=== PATIENT | female | born 1965 | race Caucasian/White ===

== ENCOUNTER 2016-09-15 09:45 | Outpatient (RCR) | payer BC, MEDICARE | END 2016-10-14 08:41 | disposition home or self-care (01) | LOC: WSPT 09:45 | DX: Q79.6 Ehlers-Danlos syndromes (principal) | CPT/HCPCS: G8978-GP; G8979-GP; G8980-GP ==

== ENCOUNTER 2016-10-09 08:45 | Outpatient (RCR) | payer BC, MEDICARE | END 2016-11-21 09:32 | disposition home or self-care (01) | LOC: WSOT 08:45 | DX: Q79.6 Ehlers-Danlos syndromes (principal) | CPT/HCPCS: G8987-GO; G8988-GO; G8989-GO ==

== ENCOUNTER → 2017-10-14 | Outpatient (CLI) | payer BC, MEDICARE | LOC: COL.RAD 10:57 | DX: N28.1 Cyst of kidney, acquired (principal) ==

== ENCOUNTER → 2017-12-17 | Outpatient (CLI) | payer BC, MEDICARE | LOC: COL.RAD 12:03 | DX: M51.24 Other intervertebral disc displacement, thoracic region (principal); R93.7 Abnormal findings on diagnostic imaging of other parts of musculoskeletal system; Z15.89 Genetic susceptibility to other disease ==

== ENCOUNTER → 2018-10-07 | Outpatient (CLI) | payer BC, MEDICARE | LOC: COL.RAD 10-06 10:30 | DX: N28.1 Cyst of kidney, acquired (principal) ==

== ENCOUNTER → 2021-02-22 | Outpatient (CLI) | payer BC, MEDICARE ==
[~2021-02-22] MED LIST: ATIVAN 0.50.5 MG/TAB PO; PHENERGAN 25 TA25 MG PO
== END ==
LOC: COL.VAS 12:04
DX: N28.1 Cyst of kidney, acquired (principal); Q79.60 Ehlers-Danlos syndrome, unspecified

== ENCOUNTER → 2021-02-26 | Outpatient (CLI) | payer BC, MEDICARE, OTHER | LOC: COL.RAD 10:02 | DX: G95.0 Syringomyelia and syringobulbia (principal); M43.9 Deforming dorsopathy, unspecified ==

== ENCOUNTER → 2021-03-18 | Outpatient (CLI) | payer BC, MEDICARE | LOC: MC.RAD 09:53 | DX: Z12.31 Encounter for screening mammogram for malignant neoplasm of breast (principal) ==

== ENCOUNTER 2021-04-24 13:47 | Emergency (ER) | payer BC, MEDICARE ==
[~2021-04-24] VITALS: Ht 162.6 cm; Wt 61.4 kg
[2021-04-24 14:58] LABS: HEMATOCRIT 42.8 % (37.0-47.0); HEMOGLOBIN 14.3 g/dl (12.5-16.0); MEAN CELL VOLUME 84 fl (80.0-100.0); MEAN CORPUSCULAR HEMOGLOBIN 28 pg (27.0-31.0); MEAN CORPUSCULAR HGB CONC 33 g/dl (33.0-37.0); MEAN PLATELET VOLUME 9.6 fl (7.4-10.4); PLATELET COUNT 367 K/mm3 (130-400); RED BLOOD COUNT 5.11 M/mm3 (4.10-5.30); REDCELL DISTRIBUTION WIDTH-CV 14.3 % (11.5-14.5)
[2021-04-24 15:03] LABS: BILIRUBIN,TOTAL 0.5 mg/dL (0.0-1.0); CALCIUM 9.6 mg/dL (8.4-10.2); CREATININE, serum 0.74 (0.52-1.25); POTASSIUM 3.5 mmol/L (3.4-5.0); TOTAL PROTEIN 8.5 gm/dL (6.4-8.2)
[2021-04-24 15:58] LABS: LYMPHOCYTE 7 % (20.0-51.0); NEUTROPHILS 89 % (42.0-75.2)
[2021-04-24 15:59] LABS: PLATELET ESTIMATE NORMAL (NORMAL)
[2021-04-24 17:12] LABS: COLLECTION METHOD CLEAN CATCH
[2021-04-24 17:27] LABS: MUCOUS Present /lpf; PH 7 (5-8); SQUAMOUS EPITHELIAL 0-2 /hpf; URINE APPEARANCE Clear; URINE BACTERIA None Seen /hpf; URINE BILIRUBIN Negative (NEGATIVE); URINE BLOOD 2+ (NEGATIVE); URINE COLOR Yellow; URINE GLUCOSE Negative (NEGATIVE); URINE KETONE 2+ (NEGATIVE); URINE LEUKOCYTE ESTERASE Negative (NEGATIVE); URINE NITRATE Negative (NEGATIVE); URINE PROTEIN(semi-quant) Negative (NEGATIVE); URINE UROBILINOGEN Negative (NEGATIVE)
[2021-04-24] MEDS ORDERED: ATIVAN 0.50.5 MG/TAB PO (18:18)
[2021-04-24] MEDS ORDERED: PHENERGAN 25 TA25 MG PO (18:18)
[2021-04-24 18:56] VITALS: BP 166/98; PULSE 78; TEMP 99.3
== END 2021-04-24 19:00 | disposition home or self-care (01) ==
LOC: COL.ER 13:47
PROVIDERS: Emergency Medicine
DX: R11.2 Nausea with vomiting, unspecified (principal); R10.9 Unspecified abdominal pain; Q79.60 Ehlers-Danlos syndrome, unspecified; F17.210 Nicotine dependence, cigarettes, uncomplicated; Z20.822 Contact with and (suspected) exposure to COVID-19
CPT/HCPCS: J0500; J1200; J2060; J2405; J2550; J2765; J3010; J7030; Q9967

== ENCOUNTER → 2022-11-25 | Outpatient (CLI) | payer BC, MEDICARE | LOC: COL.RAD 11:39 | DX: N28.1 Cyst of kidney, acquired (principal); N18.9 Chronic kidney disease, unspecified; M35.7 Hypermobility syndrome; L40.50 Arthropathic psoriasis, unspecified; Z79.899 Other long term (current) drug therapy ==

== ENCOUNTER → 2023-12-21 | Outpatient (CLI) | payer BC | LOC: MC.RAD 10:40 | DX: Z12.31 Encounter for screening mammogram for malignant neoplasm of breast (principal) ==